=== PATIENT | male | born 1960 | race African-American/Black ===

== ENCOUNTER 2016-11-23 11:12 | Emergency (ER) | payer OTHER ==
[~2016-11-23] VITALS: Ht 177.8 cm; Wt 96.8 kg
[2016-11-23] MEDS ORDERED: MET500 PO (11:27)
[2016-11-23] MEDS ORDERED: MELO-107 PO (11:27)
[2016-11-23] MEDS ORDERED: PARO10TA89 PO (11:27)
[2016-11-23] MEDS ORDERED: TraMADol HCL 50 MG TABLET PO ONE (12:30)
[2016-11-23] MEDS ORDERED: KETOROLAC TROMETHAMINE 30 MG/ML VIAL IVP ONE (12:30)
[2016-11-23] MEDS ORDERED: METHOCARBAMOL 750 MG TABLET PO ONE (12:30)
[2016-11-23 12:38] LABS: BASOPHILS % (AUTO) 0.9 % (0.0-2.0); EOSINOPHILS % (AUTO) 3.5 % (1.0-6.0); HEMATOCRIT 47.9 % (41-53); HEMOGLOBIN 15.9 g/dL (13.5-17.5); LYMPHOCYTES # (AUTO) 1.4 K/uL (1.0-4.8); MEAN CORPUSCULAR HEMOGLOBIN 28.2 pg (26.0-34.0); MEAN CORPUSCULAR HGB CONC 33.2 G/dL (31.0-37.0); MEAN CORPUSCULAR VOLUME 85 fL (80-100); MONOCYTES # (AUTO) 0.9 K/uL (0.1-1.0); MONOCYTES % (AUTO) 11.7 % (2.0-9.0); NEUTROPHILS % (AUTO) 65.9 % (40.0-70.0); PLATELET COUNT (AUTO) 239 K/uL (150-450); RED BLOOD CELL COUNT(AUTO) 5.64 MIL/uL (4.50-5.90); RED CELL DISTRIBUTION WIDTH 14.6 % (11.5-14.5); WHITE BLOOD COUNT (AUTO) 7.7 K/uL (4.5-11.0)
[2016-11-23] MEDS ORDERED: METHOCARBAMOL 500 MG TABLET PO ONE (12:45)
[2016-11-23 12:52] LABS: ANION GAP 5 mmol/L (8-16); CALCIUM, TOTAL 9.1 mg/dL (8.8-10.5); CARBON DIOXIDE 27 mmol/L (22-29); CHLORIDE 105 mmol/L (98-107); CREATININE 1.24 mg/dL (0.60-1.30); GLOMERULAR FILTR. RATE CALC > 60 mL/min (>60); POTASSIUM 4.3 mmol/L (3.5-5.1); SODIUM SERUM 137 mmol/L (136-145); UREA NITROGEN, BLOOD 12 mg/dL (7-18)
[2016-11-23 12:58] LABS: ALANINE AMINOTRANSFERASE 185 U/L (12-78); ALBUMIN 3.6 g/dL (3.4-5.0); ASPARTATE AMINOTRANSFERASE 101 U/L (15-37); BILIRUBIN,TOTAL 0.5 mg/dL (0.1-1.0); TOTAL PROTEIN, SERUM 7.9 g/dL (6.4-8.2)
[2016-11-23 14:08] VITALS: BP 119/75
== END 2016-11-23 14:10 | disposition home or self-care (01) ==
LOC: EDBD → EMS 11:16
DX: M54.5 Low back pain (principal); M46.96 Unspecified inflammatory spondylopathy, lumbar region; K74.60 Unspecified cirrhosis of liver; Z88.0 Allergy status to penicillin; Z88.2 Allergy status to sulfonamides; Z88.6 Allergy status to analgesic agent; R07.89 Other chest pain
CPT/HCPCS: 36415; 80053; 84484; 85025; 93005; 96374; 99285; J1885

== ENCOUNTER 2017-03-05 09:09 | Emergency (ER) | payer OTHER ==
[~2017-03-05] VITALS: Ht 180.3 cm; Wt 102.3 kg
[~2017-03-05 09:09] MED LIST: MELO-107 PO; MET500 PO; PARO10TA89 PO
[2017-03-05] MEDS ORDERED: MET500 PO (09:37)
[2017-03-05] MEDS ORDERED: GLEC1TAB PO (09:37)
[2017-03-05] MEDS ORDERED: SERT50TA12 PO (09:37)
[2017-03-05] MEDS ORDERED: TRAM50TA4 PO (09:37)
[2017-03-05] MEDS ORDERED: GABA-533 PO (09:37)
[2017-03-05 11:04] LABS: INFLUENZA TYPE A NEGATIVE FOR TYPE A (NEGATIVE); INFLUENZA TYPE B NEGATIVE FOR TYPE B (NEGATIVE)
[2017-03-05 11:30] VITALS: BP 142/94
[2017-03-05] MEDS ORDERED: OXYMETAZOLINE HCL 0.05% 15 ML NASAL SPRAY NASAL ONE (11:45)
== END 2017-03-05 12:12 | disposition home or self-care (01) ==
LOC: EMS 09:10
DX: J01.90 Acute sinusitis, unspecified (principal); R03.0 Elevated blood-pressure reading, without diagnosis of hypertension; R42 Dizziness and giddiness; R11.10 Vomiting, unspecified; Z88.0 Allergy status to penicillin; Z88.2 Allergy status to sulfonamides; Z88.5 Allergy status to narcotic agent
CPT/HCPCS: 87804; 99284

== ENCOUNTER 2017-03-14 03:42 | Inpatient (IN) | payer OTHER ==
[~2017-03-14] VITALS: Ht 180.3 cm; Wt 103.2 kg
[~2017-03-14 03:42] MED LIST changes: +GABA-533 PO; +GLEC1TAB PO; +SERT50TA12 PO; +TRAM50TA4 PO
[2017-03-14] MEDS ORDERED: GLUCAGON,HUMAN RECOMBINANT 1 MG VIAL IVP ONE (04:15)
[2017-03-14] MEDS ORDERED: SODIUM CHLORIDE 0.9% 1,000 ML IV ONE ×3 (04:15→11:30)
[2017-03-14] MEDS ORDERED: ONDANSETRON HCL 4 MG/2 ML VIAL IVP ONE (04:15)
[2017-03-14 04:23] LABS: BASOPHILS # (AUTO) 0.02 K/uL (0.00-0.20); BASOPHILS % (AUTO) 0.2 % (0.0-2.0); EOSINOPHILS # (AUTO) 0.18 K/uL (0.00-0.70); EOSINOPHILS % (AUTO) 2.08 % (1.0-6.0); HEMATOCRIT 46.4 % (41-53); HEMOGLOBIN 15.2 g/dL (13.5-17.5); LYMPHOCYTES % (AUTO) 10.8 % (22.0-44.0); MEAN CORPUSCULAR HEMOGLOBIN 28.1 pg (26.0-34.0); MEAN CORPUSCULAR HGB CONC 32.8 G/dL (31.0-37.0); MEAN CORPUSCULAR VOLUME 86 fL (80-100); MONOCYTES # (AUTO) 0.7 K/uL (0.1-1.0); MONOCYTES % (AUTO) 8.2 % (2.0-9.0); NEUTROPHILS # (AUTO) 6.9 K/uL (1.8-7.7); NEUTROPHILS % (AUTO) 78.7 % (40.0-70.0); PLATELET COUNT (AUTO) 223 K/uL (150-450); RED BLOOD CELL COUNT(AUTO) 5.41 MIL/uL (4.50-5.90); RED CELL DISTRIBUTION WIDTH 14.6 % (11.5-14.5)
[2017-03-14 04:34] LABS: INR 1.1 (0.9-1.1); PROTHROMBIN TIME 11.3 SEC (9.4-11.6)
[2017-03-14 04:49] LABS: ANION GAP 4 mmol/L (8-16); CALCIUM, TOTAL 8.8 mg/dL (8.8-10.5); CARBON DIOXIDE 30 mmol/L (22-29); CHLORIDE 102 mmol/L (98-107); CREATININE 1.36 mg/dL (0.60-1.30); GLOMERULAR FILTR. RATE CALC > 60 mL/min (>60); GLUCOSE,RANDOM 120 mg/dL (70-110); POTASSIUM 3.9 mmol/L (3.5-5.1); SODIUM SERUM 136 mmol/L (136-145); UREA NITROGEN, BLOOD 11 mg/dL (7-18)
[2017-03-14 04:55] LABS: ALANINE AMINOTRANSFERASE 27 U/L (12-78); ALBUMIN 3.6 g/dL (3.4-5.0); ALKALINE PHOSPHATASE 89 U/L (46-116); ASPARTATE AMINOTRANSFERASE 44 U/L (15-37); TOTAL PROTEIN, SERUM 7.8 g/dL (6.4-8.2)
[2017-03-14] MEDS ORDERED: IOVERSOL 350 MG/ML 100 ML VIAL ONE (05:38)
[2017-03-14] MEDS ORDERED: MethylPREDNISolone SOD SUCC 125 MG/2 ML VIAL IVP ONE (07:00)
[2017-03-14] MEDS ORDERED: CefTRIAXone SODIUM 1 GM in DEXTROSE 5%-WATER 10 ML IV ONE (07:00)
[2017-03-14] MEDS ORDERED: ACETAMINOPHEN 325 MG TABLET PO PRN ×2 (07:30→11:30)
[2017-03-14] MEDS ORDERED: ONDANSETRON HCL 4 MG/2 ML VIAL IVP PRN ×2 (07:30→11:30)
[2017-03-14 07:57] LABS: GLUCOSE,POINT OF CARE 102 MG/DL (70-110)
[2017-03-14 09:45] VITALS: BP 140/95
[2017-03-14] MEDS ORDERED: MAGNESIUM HYDROXIDE SUSPENSION 30 ML UDCUP PO PRN (11:30)
[2017-03-14] MEDS ORDERED: ZOLPIDEM TARTRATE 5 MG TABLET PO PRN (11:30)
[2017-03-14] MEDS ORDERED: BISACODYL 10 MG RECTAL RECTAL SUPPOSITORY PR PRN (11:30)
[2017-03-14 11:42] VITALS: BP 144/89
[2017-03-14] MEDS ORDERED: INFLUENZA VIRUS VACCINE QVS 2017-18 (3YR+)/PF 60 MCG/0.5 ML SYRINGE IM ONE (12:15)
[2017-03-14] MEDS: LEVOFLOXACIN 500 MG/D5% WATER 100 ML IV SCH (12:28)
[2017-03-14] MEDS: CLINDAMYCIN 600 MG/D5% WATER 50 ML IV SCH ×2 (13:52→20:36)
[2017-03-14] MEDS: MethylPREDNISolone SOD SUCC 125 MG/2 ML VIAL IVP SCH ×2 (15:48→15:49)
[2017-03-14 15:56] VITALS: BP 132/79
[2017-03-14] MEDS: HEPARIN SODIUM,PORCINE 5,000 UNITS/ML VIAL SQ SCH ×2 (15:58→23:56)
[2017-03-14 17:28] LABS: INFLUENZA TYPE A NEGATIVE FOR TYPE A (NEGATIVE); INFLUENZA TYPE B NEGATIVE FOR TYPE B (NEGATIVE)
[2017-03-14 20:04] VITALS: BP_SYST 127; BP_SYST 80; BP_DIAS 82
[2017-03-14] MEDS: DOCUSATE SODIUM 100 MG CAPSULE PO SCH (20:36)
[2017-03-14] MEDS: PANTOPRAZOLE SODIUM 40 MG/VIAL IVP SCH (20:36)
[2017-03-14] MEDS: IBUPROFEN 400 MG TABLET PO SCH (20:36)
[2017-03-14] MEDS ORDERED: PROPOFOL 1% 20 ML VIAL IVP ONE (23:00)
[2017-03-15 00:03] VITALS: BP 127/77
[2017-03-15 04:47] VITALS: BP 115/76
[2017-03-15] MEDS ORDERED: SODIUM CHLORIDE 0.9% 250 ML IV ONE (04:58)
[2017-03-15] MEDS: CLINDAMYCIN 600 MG/D5% WATER 50 ML IV SCH ×2 (04:59→12:57)
[2017-03-15 07:19] VITALS: BP 120/74
[2017-03-15] MEDS: DOCUSATE SODIUM 100 MG CAPSULE PO SCH (08:05)
[2017-03-15] MEDS: HEPARIN SODIUM,PORCINE 5,000 UNITS/ML VIAL SQ SCH ×2 (08:05→15:36)
[2017-03-15] MEDS: IBUPROFEN 400 MG TABLET PO SCH (08:05)
[2017-03-15] MEDS: PANTOPRAZOLE SODIUM 40 MG/VIAL IVP SCH (08:05)
[2017-03-15 11:00] VITALS: BP 100/46
[2017-03-15] MEDS: LEVOFLOXACIN 500 MG/D5% WATER 100 ML IV SCH (11:18)
[2017-03-15 11:42] VITALS: BP 126/74
[2017-03-15 15:08] VITALS: BP 133/79
[2017-03-15] MEDS ORDERED: CLIN150C9 PO (16:01)
[2017-03-15] MEDS ORDERED: IBUP-1506 PO (16:01)
[2017-03-15] MEDS ORDERED: OMEP20 PO (16:02)
== END 2017-03-15 18:35 | disposition home or self-care (01) | DRG 243 ==
LOC: EDBD 03:44 → EMS 03:44 → 5S 08:18
PROVIDERS: ADMIT Internal Medicine; ATTEND Internal Medicine
DX: K20.9 Esophagitis, unspecified (principal); K75.9 Inflammatory liver disease, unspecified; R13.10 Dysphagia, unspecified; M47.9 Spondylosis, unspecified; Z88.0 Allergy status to penicillin; Z88.2 Allergy status to sulfonamides; Z88.5 Allergy status to narcotic agent
CPT/HCPCS: 70360; 70491; 82962; 87081; 87804; 90471; 96361; 96374; 96375; 99285; C9113; J0696; J1610; J1644; J1956; J2405; J2704; J2930; J3490; J7030; J7050; J7060